=== PATIENT | male | born 1970 | race Caucasian/White ===

== ENCOUNTER → 2017-06-03 | Outpatient (CLI) | payer BC ==
[~2017-06-03] MED LIST: CNC/27 PO; GLUC10007 PO; IBUP-1050 PO; MULT-506 PO; OMEG10007 PO
[2017-06-03 12:37] LABS: BASO ABS # 0.05 K/uL (0-0.2); COMPLETE YES; EOS % 0.6 %; HEMATOCRIT 43.9 % (42-52); IG% 0.4 %; LYMPH % 44.6 %; LYMPH ABS # 2.19 K/uL (1.2-3.4); MEAN CELL VOLUME 87.6 fL (80-100); MEAN CORPUSCULAR HEMOGLOBIN 31.1 pg (25-34); MEAN CORPUSCULAR HGB CONC 35.5 g/dl (32-36); MEAN PLATELET VOLUME 9.9 fL (7.4-10.4); MONO % 19.8 %; NEUT % 33.6 %; PLATELET COUNT 261 K/uL (130-400); RED BLOOD COUNT 5.01 M/uL (4.7-6.1); WHITE BLOOD COUNT 4.91 K/uL (4.8-10.8)
[2017-06-03 17:34] LABS: CHOLESTEROL/HDL RATIO 5.9
== END | disposition home or self-care (01) ==
LOC: C.LABPVFM 11:02
PROVIDERS: ATTEND Neuromusculoskeletal Medicine & OMM
DX: Z00.00 Encounter for general adult medical examination without abnormal findings (principal); R53.83 Other fatigue; D72.819 Decreased white blood cell count, unspecified